=== PATIENT | female | born 1995 | race Caucasian/White ===

== ENCOUNTER 2023-11-06 13:36 | Outpatient (REF) | payer BC, SELFPAY ==
--- NOTE | 2023-11-06 12:00 | PAPFT_PTH ---
PATIENT: Bethanie Duncan LOC: [facility] U#:[id number] AGE/SX: 28/F ROOM: RE11/06/[address]: Ava Rosario : 1995 BED: DIS: 11/06/2023 SPEC #: [id number] RECD: 11/06/23 17:43 STATUS: SVETLANA REQ #: [id number] LIAM: 11/06/23 12:[address]: Ava Rosario DEPT: [facility] Cytology RECD BY: Madeleine Cunningham ENTERED: 11/06/23 17:44 SP TYPE: PAPFT OT DR: Unknown,Unknown Tissues: 1 - CX/ENDOCX FOR PAP SMEARS Procedures: PAP THIN PREP/[facility] Screening HPV DNA PROBE Comments: [id number] (HPV 16 & 18/45)
[2023-11-09 12:56] LABS: Chlamydia Result Negative (Negative); GC Result Negative (Negative)
== END 2023-11-06 13:37 | disposition home or self-care (01) ==
LOC: LBN 13:36
PROVIDERS: Visit Provider Advanced Practice Midwife
DX: Z34.91 Encounter for supervision of normal pregnancy, unspecified, first trimester
CPT/HCPCS: 87491; 87591; 88142; 87086; 87480; 87510; 87624; 87660